=== PATIENT | female | born 1960 | race Two or more races ===

== ENCOUNTER 2024-04-02 10:26 | Outpatient (RCR) | payer BC, SELFPAY | END 2024-04-19 23:59 | disposition home or self-care (01) | LOC: SCTC 10:26 | PROVIDERS: PCP Family Medicine; Referring Provider Family Medicine; Visit Provider Nurse Practitioner Family | DX: C50.811 Malignant neoplasm of overlapping sites of right female breast (principal); Z17.0 Estrogen receptor positive status [ER+]; Z17.21 Progesterone receptor positive status; Z17.32 Human epidermal growth factor receptor 2 negative status; Z90.11 Acquired absence of right breast and nipple; Z79.811 Long term (current) use of aromatase inhibitors | CPT/HCPCS: 99212; G0463 ==

== ENCOUNTER → 2024-07-03 | Outpatient (CLI) | payer BC, SELFPAY ==
--- NOTE | 2024-07-03 13:54 | XR_ITS ---
Examination: PA lateral chest 2 views TECHNIQUE: Upright PA lateral chest 2 views Exam date and time: July 03, 2024 1406 hours Comparison February 28, 2019 INDICATIONS: Shortness of breath beginning one week ago. FINDINGS: Right axillary surgical clips Normal heart size No pneumonia or pulmonary edema Prominent osteopenia IMPRESSION: No pneumonia or pulmonary edema
== END | disposition home or self-care (01) ==
LOC: CDIM 13:36
PROVIDERS: PCP Family Medicine; Referring Provider Nurse Practitioner Family; Visit Provider Nurse Practitioner Family
DX: J45.41 Moderate persistent asthma with (acute) exacerbation (principal)
CPT/HCPCS: 71046

== ENCOUNTER 2024-07-07 15:44 | Emergency (ER) | payer BC, SELFPAY ==
[2024-07-07 16:10] VITALS: BP 147/89; PULSE 89; RESP 18; TEMP 37; O2SAT 100; BMI 31.4
--- NOTE | 2024-07-07 16:15 | XR_ITS ---
Examination: Knee, right , 3 views Technique: Knee AP, lateral, oblique 3 views Date and time of exam: July 07, 2024 1615 hrs. Indications: Patient fell today with into the knee, knee pain. Findings: Mild narrowing medial joint space No fracture or dislocation No opaque foreign body Impression: No fracture No opaque foreign body
[2024-07-07] MEDS: LIDOCAINE HCL 1% 20 ML VIAL INFL (16:21)
[2024-07-07] MEDS: DIPHTH,PERTUSS(ACELL),TET VAC 0.5 ML SYR IMi (16:22)
--- NOTE | 2024-07-07 16:55 | EDNOTE_ITS ---
ED Wound/Laceration-RME/HPI General Chief Complaint: Wound/Laceration Stated Complaint: fall, lac to right leg, wounds to right f/a s/p Time Seen by Provider: 07/07/24 15:54 Arrival date/time: 07/07/24 15:44 64-year-old female presents emergency department today complaint of ground-level fall patient reports injury to right knee as well as right forearm unknown last tetanus Limitations: no limitations Related Data Home Medications ?Medication ?Instructions ?Recorded ?Confirmed montelukast 10 mg tablet 10 mg PO HS #0 tabs 10/04/13 (Singulair) Fluticasone/Salmeterol DISKUS * 1 puff inhalation BID #0 puffs 11/16/14 (ADVAIR DISKUS 100/50 *) Cyclobenzaprine * (FLEXERIL *) 10 mg PO TID PRN MUSCLE CRAMPS #0 02/06/15 tabs ibuprofen 800 mg tablet 800 mg PO Q8HR PRN PAIN #0 t abs 02/06/15 levofloxacin 500 mg tablet 1 tab PO QDAY #0 tabs 02/06 (Levaquin) Previous Rx's ?Medication ?Instructions ?Recorded Sulfamethoxazole/Trimethoprim DS * 1 tab PO BID #20 ta bs 02/06/15 (BACTRIM DS *) hydrocodone 5 mg-acetaminophen 325 1 tab PO Q6H PRN pa in #14 tabs 03/27/19 mg tablet (Ramer) ibuprofen 600 mg tablet 600 mg PO Q6H ginette #20 tabs 1 05/27/18 doxycycline hyclate 100 mg capsule 100 mg PO BID 7 day s #14 caps 07/07/24 ibuprofen 800 mg tablet 800 mg PO TID PRN pain #30 t abs 07/07/24 Allergies Allergy/AdvReac Type Severity Reaction Status Date / Time Penicillins Allergy Unknown Verified 07/07/24 15:48 PCN Allergy Unknown Uncoded 07/07/24 15:48 Review of Systems Review of Systems Systems Reviewed: All systems reviewed, normal except as documented Constitutional Constitutional: Reports system reviewed and no additional complaints, except as documented, Denies fever(s) and Denies headache(s) Eyes Eyes: Reports system reviewed and no additional complaints, except as documented and Denies blurry vision ENT Ears, Nose, Mouth, and Throat: Reports system reviewed and no additional complaints, except as documented, Denies headache(s), Denies nasal congestion and Denies nasal discharge Cardiovascular Cardiovascular: Reports system reviewed and no additional complaints, except as documented, Denies chest pain and Denies dyspnea Respiratory Respiratory: Reports system reviewed and no additional complaints, except as documented, Denies chest congestion, Denies cough and Denies dyspnea Gastrointestinal Gastrointestinal: Reports system reviewed and no additional complaints, except as documented and Denies abdominal pain Integumentary/Breasts Skin/Breast: Reports system reviewed and no additional complaints, except as documented, Denies rash and Reports wounds (Puncture wound right forearm, laceration right knee) Neurologic Neurologic: Reports system reviewed and no additional complaints, except as documented, Reports as per HPI and Denies headache(s) Past Medical History Past Medical History RESPIRATORY: Positive Asthma; Negative Chronic Obstructive Pulmonary Disease (COPD), Emphysema, Pneumonia or Tuberculosis OTHER HISTORY: Positive Blood Transfusions; Negative Cancer Social History SMOKING STATUS: Former smoker ED Exam General Limitations: Present no limitations General appearance: Present alert and in no apparent distress Head Head exam: Present atraumatic, normocephalic and normal inspection Eye Eye exam: Present normal appearance, PERRL and EOMI ENT ENT exam: Present normal exam, normal oropharynx and mucous membranes moist Neck Neck exam: Present normal inspection, full ROM and trachea midline Chest Chest inspection: Present normal inspection and symmetric chest wall rise Respiratory Respiratory exam: Present normal lung sounds bilaterally Cardiovascular Cardiovascular exam: Present regular rate, normal rhythm and normal heart sounds Abdominal Exam Abdominal exam: Present soft and normal bowel sounds Extremities Exam Extremities exam: Present normal inspection and full ROM Back Exam Back exam: Present normal inspection and full ROM Neurological Exam Neurological exam: Present alert, oriented X3, CN II-XII intact, normal gait and reflexes normal; Absent motor sensory deficit Psychiatric Psychiatric exam: Present normal affect and normal mood Skin Skin exam: Present warm, dry and other (Puncture wound right forearm, laceration right knee) Course Quality Measures none Orders Category Date Time Status Set Up Suture Tray STAT Care 07/07/24 16:16 Completed Wound Care NOW Care 07/07/24 16:16 Completed XR knee RT 3V Stat Exams 07/07/24 16:15 Completed Lidocaine 1% 20 ml [Xylocaine 1% 20 ML] Med 07/07/24 16:15 Discontinued 20 ml INFL X1 ONE Tet,Diphth,Pertuss(Acell)-Tdap [Boostrix Vacc] Med 07/07/24 16:15 Discontinued 0.5 ml IMI .ONCE ONE Vital Signs Vital signs: Vital Signs Temperature 98.6 F 07/07/24 16:10 Pulse Rate 89 07/07/24 16:10 Respiratory Rate 18 07/07/24 16:10 Blood Pressure 147/89 H 07/07/24 16:10 Pulse Oximetry (%) 100 07/07/24 16:10 Oxygen Delivery Method Room Air 07/07/24 16:10 O2 saturation on 100% room air within the limits Procedures -ED Laceration Laceration 1: Site: lower extremity Side (If applicable): right Size (cm): 4 Description: linear Depth: simple, single layer Local Anesthetic: lidocaine 1% Amount of anesthesia used (mL): 8 Pre-repair: wound explored and irrigated extensively Skin layer closed with: nylon Size (cm): 3-0 Number of sutures: 6 Technique: simple, interrupted Wound / Laceration MDM Narrative MDM Narrative:: 64-year-old female presents emergency department today complaint of ground-level fall patient reports injury to right knee as well as right forearm unknown last tetanus Patient reports fall was ground-level she reports she tripped patient reports laceration to the right knee as well as puncture wounds to the right forearm Wounds were irrigated copiously laceration repaired with a total of 6 sutures wound is well-approximated no active bleeding at time of discharge to the right knee As far as the right forearm goes there are puncture wounds that will not require sutures Patient discharged with antibiotics and pain medication Patient data External records reviewed:: [facility] previous records Clinical information provided by:: patient Social determinants that could affect healthcare access:: none Patient has the following chronic illnesses:: None How is presenting disease/condition affected by chronic disease/condition?: no chronic disease Evaluation data The following diagnostics were reviewed and interpreted by me:: radiology exam(s) Lab and/or radiology exams considered but not ordered:: Radiology obtained Interpretation Summary: Reviewed by me Medications / Prescriptions Medications or Prescriptions considered but not ordered:: Given Medication administrations:: Medication Administration History Discontinued Medications Diphtheria/Tetanus/Acell Pertussis (Diphth,Pertuss(Acell),Tet Vac 0.5 Ml Syr) 0.5 ml IMi .ONCE ONE Stop: 07/07/24 16:16 Last Admin: 07/07/24 16:22 Dose: 0.5 ml Documented By: PATRICIA Lidocaine HCl (Lidocaine Hcl 1% 20 Ml Vial) 20 ml INFL X1 ONE Stop: 07/07/24 16:16 Last Admin: 07/07/24 16:21 Dose: 20 ml Documented By: PATRICIA Given Consultations Consultation(s) initiated? (list below): No Diagnosis Wound Differential Diagnosis: laceration, abrasion and avulsion of skin Most likely diagnosis given after review of the tests above:: Laceration Admission Indicated Admission indicated?: not indicated Admission Request Was there a request for admission?: No Disposition Plan Disposition Plan: Discharge Discharge Attestation Discharge Attestation: The patient and all family members were given an opportunity to ask questions and understood the discharge instructions. Discharge instructions specifically effects, indications for sooner follow up or return to the emergency department, and the expected course of current diagnosis. Patient condition: Stable Discharge Plan Plan Patient Disposition: HOME (Self Care) Disposition Comment: Stable Prescriptions/Referrals Prescriptions/Med Rec: New doxycycline hyclate 100 mg capsule 100 mg PO BID 7 Days Qty: 14 0RF ibuprofen 800 mg tablet 800 mg PO TID PRN (Reason: pain) Qty: 30 0RF No Action montelukast [Singulair] 10 MG tablet 10 mg PO HS Qty: 0 Fluticasone/Salmeterol DISKUS * (ADVAIR DISKUS 100/50 *) 1 DISK/DEV DISK.W.DEV 1 puff Inhalation BID Qty: 0 ibuprofen 800 MG tablet 800 mg PO Q8HR PRN (Reason: PAIN) Qty: 0 levofloxacin [Levaquin] 500 MG tablet 1 tab PO QDAY Qty: 0 Patient Comments: FOR INFECTION Cyclobenzaprine * (FLEXERIL *) 10 MG tablet 10 mg PO TID PRN (Reason: MUSCLE CRAMPS) Qty: 0 Sulfamethoxazole/Trimethoprim DS * (BACTRIM DS *) 1 TAB tablet 1 tab PO BID Qty: 20 0RF hydrocodone-acetaminophen [Ramer] 5-325 mg tablet 1 tab PO Q6H MDD 1 tab q 6hrs PRN (Reason: pain) Qty: 14 0RF ibuprofen 600 mg tablet 600 mg PO Q6H Qty: 20 0RF Problem List Clinical Impression: Laceration of knee, right, Puncture wound of forearm Patient/Caregiver Discharge Instructions Education Materials: ED Scar Tips to Minimize Additional Instructions: Please follow up with your primary care doctor in the next 24-48hrs for any worsening symptoms return here immediately Print Language: [place] Stand Alone Forms: [employer] Award Info., Patient Portal Info Letter Vaccines Vaccines Given During Stay: TDaP PA/INFORMATION RECEPTIONIST Supervising Physician PA/INFORMATION RECEPTIONIST Supervising Physician: Dr. seay
== END 2024-07-07 17:11 | disposition home or self-care (01) ==
LOC: SERX 17:10
PROVIDERS: Emergency Provider Emergency Medicine; PCP Family Medicine
DX: S81.011A Laceration without foreign body, right knee, initial encounter (principal); S51.831A Puncture wound without foreign body of right forearm, initial encounter; W18.30XA Fall on same level, unspecified, initial encounter; Z23 Encounter for immunization
CPT/HCPCS: 12002; 73562; 90471; 90715; 99283; J3490

== ENCOUNTER → 2024-08-22 | Outpatient (CLI) | payer BC, SELFPAY | END | disposition home or self-care (01) | PROVIDERS: PCP Family Medicine; Referring Provider Registered Nurse; Visit Provider Registered Nurse | DX: N39.0 Urinary tract infection, site not specified (principal) | CPT/HCPCS: 87086 ==

== ENCOUNTER 2024-10-17 08:04 | Outpatient (AMB) | payer BC, SELFPAY ==
[2024-10-17 08:18] VITALS: BP 145/90; PULSE 73; RESP 18; TEMP 36.8; O2SAT 97; BMI 35.0
--- NOTE | 2024-10-17 08:18 | ORTHONT_ITS ---
Vital signs 10/17/24 08:18 Height 1.65 m Height Method Stated Weight 95.481 kg Weight Measurement Method Standing Scale BMI 35.0 BP 145/90 H Blood Pressure Source Automatic Cuff Blood Pressure Location Right Upper Arm Position Sitting Respiration 18 Pulse 73 Pulse Source Monitor Temp 98.3 F Temp Source Temporal Artery Scan Pulse Oximetry (%) 97 Oxygen Delivery Method Room Air Med/Allergies Allergies & Medications Allergies Penicillins Allergy (Unknown, Verified 10/17/24 08:19) PCN Allergy (Unknown, Uncoded 10/17/24 08:19) Medication Reconciliation alendronate 35 mg tablet 35 mg PO QWEEK 10/17/24 [History Confirmed 10/17/24] anastrozole 1 mg tablet 1 mg PO QDAY 10/17/24 [History Confirmed 10/17/24] Exam Exam Breathing is nonlabored. Patient has a normal mood and affect. Bilateral extremities were evaluated and demonstrates sensation intact to light touch. Palpable pedal pulses are present. No significant edema is present. Bilateral hips were examined. The patient has no pain with log roll of the hips. Internal rotation to 30 degrees and external rotation to 30 degrees is painless. Negative FADIR. Left knee was examined today. The left knee is in reasonable alignment. Range of motion from 0-120 degrees. Knee is stable to varus and valgus as well as AP translation with <5mm. Patient has a negative McMurrays. There is no pain with patellofemoral compression and no crepitus noted. The knee is nontender to palpation. The right knee was also examined. The right knee is in varus alignment. Range of motion from 0-115 degrees. Knee is stable to varus and valgus as well as AP translation with <5mm. Patient has a negative McMurrays. There is no pain with patellofemoral compression and no crepitus noted. The knee is tender to palpation medially. Assessment and Plan Problem List (1) Arthritis of right knee: Status: Acute Plan: Patient is a 64-year-old female with right knee pain and right knee arthritis. She had a fall that exacerbated this. We discussed we could do a new x-rays if she wants. She reports the pains has gotten significantly better. We will see her back for routine follow-up Advanced Care Planning Discussion Advance care planning discussed with:: patient Office Procedures GNS Level of Care Nursing/Assessment Patient Status: Established Patient Nursing Assessment/Reassesment: Medication Reconciliation, Update PMH in EMR and Vital Signs Coordination of Care: Complex Care and Chronic Disease 1-5, Education Complex Pt/Fam, Consent,records obtained, informed consent, Results/Orders obtained and Staff clarify orders Established Patient Charge Established Patient Point Assignment: 95 Established Patient Point Charge: EP Level 3 (80-115) MA Intake Visit Data Collection New Patient or Established: Established Patient (seen at [facility] within 3 years) Reason for Visit:: RIGHT KNEE PAIN Seen by Clinical Staff ONLY (RN/MA): No Verbal consent obtained for Telemed visit?: No Public Health Microbiologist Required: No PCP or OBGYN visit in last 3 months: Yes Hx Now: No Do You Feel Safe at Home: Yes Authorities Contacted: N/A Questionairres Past Medical History Past Medical History Have you ever been diagnosed with any of the following: Respiratory Problems Chronic Obstructive Pulmonary Disease (COPD): No Asthma: Yes Emphysema: No Pneumonia: No Tuberculosis: No Smoking: No Smoking Cessation Counseling: No Smoking Exposure: No Tobacco Use: No Other Problems Blood Transfusions: Yes Cancer: No Subjective Visit Visit for: new patient and knee Immunization / Flu Flu Vaccine in the Last 12 Months: Yes Flu Vaccine Exclusion Criteria: Already Received History of Present Illness Chief complaint: RIGHT KNEE PAIN Date of injury / onset of symptoms: FALL IN JUN Patient is a pleasant 64-year-old female with left knee Arthritis with a recent right knee pain after a fall. We have been treating her nonoperatively. She is doing well Personal History Red flag PMH: BMI BMI Counceling provided: Yes Pain Pain level (0-10): 0 Associated signs & symptoms: none Ambulatory data Ambulatory device: none Treatments Improvement with previous injections: No Improvement with PT: No Improvement with NSAIDS: no Review of Systems Review of Systems: All systems negative unless otherwise noted in HPI.
== END 2024-10-17 08:25 | disposition home or self-care (01) ==
LOC: HODSRG 08:04
PROVIDERS: PCP Family Medicine; Referring Provider Family Medicine; Supervising Provider Orthopaedic Surgery Adult Reconstructive Orthopaedic Surgery; Visit Provider Orthopaedic Surgery Adult Reconstructive Orthopaedic Surgery
DX: M17.11 Unilateral primary osteoarthritis, right knee (principal); M25.561 Pain in right knee; S89.91XA Unspecified injury of right lower leg, initial encounter; W19.XXXA Unspecified fall, initial encounter
CPT/HCPCS: 99213; G0463

== ENCOUNTER 2024-11-06 13:13 | Outpatient (RCR) | payer BC, SELFPAY | END 2024-11-17 23:59 | disposition home or self-care (01) | LOC: SCTC 13:13 | PROVIDERS: PCP Family Medicine; Referring Provider Nurse Practitioner Family; Visit Provider Nurse Practitioner Family | DX: C50.811 Malignant neoplasm of overlapping sites of right female breast (principal); Z17.0 Estrogen receptor positive status [ER+]; Z17.21 Progesterone receptor positive status; Z17.32 Human epidermal growth factor receptor 2 negative status; Z90.11 Acquired absence of right breast and nipple; Z79.811 Long term (current) use of aromatase inhibitors; M85.80 Other specified disorders of bone density and structure, unspecified site | CPT/HCPCS: 96365; 99212; J3489; G0463 ==

== ENCOUNTER 2024-11-11 10:19 | Outpatient (AMB) | payer BC, SELFPAY ==
[2024-11-11 10:36] VITALS: BP 113/69; PULSE 73; RESP 17; TEMP 36.7; O2SAT 95; BMI 35.2
--- NOTE | 2024-11-11 10:36 | AMB.GYNCLNOT ---
Vital Signs 11/11/24 10:36 Height 1.65 m Height Method Stated Weight 95.878 kg Weight Measurement Method Standing Scale BMI 35.2 BP 113/69 Blood Pressure Source Automatic Cuff Blood Pressure Location Left Upper Arm Position Sitting Respiration 17 Pulse 73 Pulse Source Monitor Temp 98.1 F Temp Source Temporal Artery Scan Pulse Oximetry (%) 95 Oxygen Delivery Method Room Air Allergies/Home Meds Allergies & Medications Allergies Penicillins Allergy (Unknown, Verified 11/11/24 10:37) PCN Allergy (Unknown, Uncoded 11/11/24 10:37) Medication Reconciliation alendronate 35 mg tablet 35 mg PO QWEEK 10/17/24 [History Confirmed 11/11/24] anastrozole 1 mg tablet 1 mg PO QDAY 10/17/24 [History Confirmed 11/11/24] clindamycin phosphate 1 % topical solution 1 applic topical QDAY 7 days #30 mL 11/11/24 [Rx] clobetasol 0.05 % topical ointment 1 applic topical QDAY 30 days #45 grams 11/11/24 [Rx] estradiol 0.01% (0.1 mg/gram) vaginal cream 1 g vaginal Q3D 30 days #42.5 grams 11/11/24 [Rx] Intake Visit Data Collection New Patient or Established: Established Patient (seen at [facility] within 3 years) Reason for Visit:: REFERRAL VAGINITIS Seen by Clinical Staff ONLY (RN/MA): No 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: No Do You Feel Safe at Home: Yes Authorities Contacted: N/A PCP or OBGYN visit in last 3 months: Yes Date of Last PCP or OBGYN visit: 10/17/24 Are you currently on any form of Control: No Pain Present Currently: No Pain Scale Used: Broderick-Crane/Numerical Pain scale:: 0 Smoking Status Smoking Status: Former smoker 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 1. Little interest or pleasure in doing things: not at all 2. Feeling down, depressed, or hopeless: not at all Total score: 0 PHQ-9 3. Trouble falling or staying asleep, or sleeping too much: Not at all 4. Feeling tired or having little energy: Not at all 5. Poor appetite or overeating: Not at all 6. Feeling bad about yourself - or that you are a failure or have let yourself or your family down: Not at all 7. Trouble concentrating on things, such as reading the newspaper or watching television: Not at all 8. Moving or speaking so slowly that other people could have noticed? - Or the opposite - being so fidgety or restless that you have been moving around a lot more than usual: not at all 9. Thoughts that you would be better off or of hurting yourself in some way: Not at all Total score: 0 If you checked off any problems, how difficult have these problems made it for you to do your work, take care of things at home, or get along with other people?: not difficult at all Source: Developed by Drs. Mike Armstrong, Angie Parmar, Jasson Mcnamara and colleagues, with an educational annette from [employer]. Depression screen completed yes Social History Living Situation History Marital Status: Lives With: Family Housing: House Tobacco History Smoking Status: Former smoker Packs per Day: 0.5 Pack-Years: 4 Alcohol History Alcohol Intake: Never Domestic Abuse History Do You Feel Safe at Home: Yes History of Present Illness HPI Narrative Chief Complaint Vaginitis symptoms, ongoing discomfort and irritation History of Present Illness Tara Perez is a 64-year-old female with a history of right breast cancer and hysterectomy, presenting with vaginitis symptoms. She reports ongoing discomfort and irritation in the vaginal area, which has persisted despite previous treatments. The patient's symptoms began after starting anastrozole on 09/28/2022 for her breast cancer treatment. She was initially treated in March with Bactrim for a suspected UTI, followed by creams, but the symptoms have continued. The vaginitis is likely due to dryness caused by estrogen deprivation from the anastrozole. Tara describes the symptoms as persistent discomfort and irritation in the vaginal area. Tara's medical history is significant for stage 1A, ER positive, PA positive, HER2 negative, moderately differentiated invasive ductal carcinoma of the right breast. She underwent a right breast lumpectomy in December 2019, followed by a sentinel lymph node biopsy and re-excision on 02/24/2022. She also received radiation therapy starting on the same day as her re-excision. Additionally, she has a history of asthma and osteopenia, as confirmed by a DEXA scan on 09/13/2022. The patient's surgical history includes a hysterectomy in 2001, during which she experienced a small intestinal injury. She was previously treated for her current symptoms at [facility] with Bactrim and Diflucan, but the vaginitis persists. Medical History - Osteopenia diagnosed on 09/13/2022 - Right breast cancer, stage 1A, ER positive, PA positive, HER2 negative, moderately differentiated invasive ductal carcinoma - Asthma Surgical History - Right breast re-excision on 02/24/2022 - Right breast lumpectomy with sentinel lymph node biopsy in 12/2019 for stage 1A breast cancer - Hysterectomy in 2001 with small intestinal injury as a complication Medications and Supplements - Anastrozole - Started on 09/28/2022 - Likely causing dryness due to estrogen deprivation - Bactrim - Taken in March for suspected UTI - Diflucan - Taken previously for vaginitis symptoms Review of Systems Genitourinary: Positive for ongoing discomfort and irritation in the vaginal area. Laboratory, Imaging, and Diagnostic Test Results - DEXA scan (09/13/2022): Showed osteopenia - Breast cancer diagnosis: - Stage: 1A - ER: Positive - PA: Positive - HER2: Negative - Type: Moderately differentiated invasive ductal carcinoma Review of Systems Review of Systems Systems Reviewed: All systems reviewed, normal except as documented Exam General General Appearance: alert, in no apparent distress and healthy appearing Head Head exam: atraumatic Neck Neck exam: Present normal inspection and trachea midline Chest Chest inspection: Present normal inspection and symmetric chest wall rise External exam: Present normal external exam; Absent tenderness Neuro Neurological exam: Present oriented X3 Psych Psychiatric exam: Present normal affect and normal mood Office Procedures OB Clinic LOC & Office Proc's Nursing/Assessment Patient Status: Established Patient OB Clinic Nursing Assessment: Medication Reconciliation, Update PMH in EMR and Vital Signs OB Clinic Coordination of Care: Complex Care and Chronic Disease 1-5, Consent,records obtained, informed consent, Education Simp Pt/Fam and Staff clarify orders Established Patient Charge Established Patient Point Assignment: 85 Established Patient Point Charge: EP Level 3 (80-115) Assessment & Plan Diagnosis / Problem List (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 Vaginitis Assessment: Patient presents with ongoing vaginitis symptoms, including discomfort and irritation. Previous treatments with Bactrim and Diflucan at [facility] were ineffective. The symptoms are likely exacerbated by the use of anastrozole, which causes dryness due to estrogen deprivation. The patient's history of breast cancer (stage 1A, ER positive, PA positive, HER2 negative, moderately differentiated invasive ductal carcinoma) and ongoing anastrozole treatment since 09/28/2022 complicate the management of her vaginitis symptoms. Additional Guidance (ACOG Clinical Consensus No. 2, April 2021): - Low-dose vaginal estrogen can be considered if non-hormonal therapies fail - Options include estradiol vaginal tablets (10 mcg), vaginal rings (7.5 mcg/day), or low-dose vaginal creams - Multiple studies (>4,000 women, 2-7 years follow-up) show no increased breast cancer recurrence risk - For patients on aromatase inhibitors, use requires shared decision-making and oncologist consultation Plan: - Prescribe short-term estrogen cream, safe for breast cancer patients, to be used twice a week - Prescribe steroid cream to reduce inflammation, to be used nightly - Recommend wearing cotton underwear to avoid irritation - Follow up in one month - If symptoms persist, consider biopsy - Send prescriptions to [facility] in [place] Osteopenia Assessment: DEXA scan on 09/13/2022 revealed osteopenia. This condition is likely related to the patient's age and possibly exacerbated by the use of anastrozole for breast cancer treatment. Plan: - Continue monitoring bone density - No specific interventions mentioned in this visit Breast Cancer History Assessment: Patient has a history of right breast cancer, diagnosed as stage 1A, ER positive, PA positive, HER2 negative, moderately differentiated invasive ductal carcinoma. Treatment included right breast lumpectomy on 12/2019, sentinel lymph node biopsy, re-excision on 02/24/2022, and radiation therapy. Currently on anastrozole since 09/28/2022 for ongoing management. Plan: - Continue anastrozole as prescribed - Monitor for side effects and complications related to anastrozole use
== END 2024-11-11 10:50 | disposition home or self-care (01) ==
LOC: HODSOBC 10:19
PROVIDERS: PCP Family Medicine; Referring Provider Family Medicine; Supervising Provider Obstetrics & Gynecology; Visit Provider Obstetrics & Gynecology
DX: N90.4 Leukoplakia of vulva (principal); N95.2 Postmenopausal atrophic vaginitis; D05.11 Intraductal carcinoma in situ of right breast; J45.909 Unspecified asthma, uncomplicated; Z17.21 Progesterone receptor positive status; Z17.0 Estrogen receptor positive status [ER+]; Z17.32 Human epidermal growth factor receptor 2 negative status; Z92.3 Personal history of irradiation; Z90.710 Acquired absence of both cervix and uterus; Z79.811 Long term (current) use of aromatase inhibitors; Z87.891 Personal history of nicotine dependence
CPT/HCPCS: 99213; G0463

== ENCOUNTER 2024-12-12 13:13 | Outpatient (AMB) | payer BC, SELFPAY ==
[2024-12-12 13:25] VITALS: BP 125/77; PULSE 68; RESP 17; TEMP 36.8; O2SAT 95; BMI 35.3
--- NOTE | 2024-12-12 13:25 | GYNCLNT_ITS ---
Vital Signs 12/12/24 13:25 Height 1.65 m Height Method Measured Weight 96.275 kg Weight Measurement Method Standing Scale BMI 35.3 BP 125/77 Blood Pressure Source Automatic Cuff Blood Pressure Location Right Upper Arm Position Sitting Respiration 17 Pulse 68 Pulse Source Monitor Temp 98.2 F Temp Source Temporal Artery Scan Pulse Oximetry (%) 95 Oxygen Delivery Method Room Air Allergies/Home Meds Allergies & Medications Allergies Penicillins Allergy (Unknown, Verified 01/15/25 11:20) PCN Allergy (Unknown, Uncoded 01/15/25 11:20) Medication Reconciliation alendronate 35 mg tablet 35 mg PO QWEEK 10/17/24 [History Confirmed 01/15/25] anastrozole 1 mg tablet 1 mg PO QDAY 10/17/24 [History Confirmed 01/15/25] clindamycin phosphate 1 % topical solution 1 applic topical QDAY 7 days #30 mL 11/11/24 [Rx Confirmed 01/15/25] clobetasol 0.05 % topical ointment 1 applic topical QDAY 30 days #45 grams 11/11/24 [Rx Confirmed 01/15/25] estradiol 0.01% (0.1 mg/gram) vaginal cream 1 g vaginal Q3D 30 days #42.5 grams 12/12/24 [Rx Confirmed 01/15/25] Intake Visit Data Collection New Patient or Established: Established Patient (seen at [facility] [place] within 3 years) Reason for Visit:: FOLLOW UP VAGINAL CONCERNS Consent obtained for Telemed Visit: No Seen by Clinical Staff ONLY (RN/MA): No Director Of Volunteer Services Required: No Do You Feel Safe at Home: Yes Authorities Contacted: N/A PCP or OBGYN visit in last 3 months: Yes Date of Last PCP or OBGYN visit: 11/11/24 Hx Now: No Are you currently on any form of Control: No Pain Present Currently: No Pain Scale Used: Broderick-Crane/Numerical Pain scale:: 0 Smoking Status Smoking Status: Former smoker 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 1. Little interest or pleasure in doing things: not at all PHQ-9 8. Moving or speaking so slowly that other people could have noticed? - Or the opposite - being so fidgety or restless that you have been moving around a lot more than usual: not at all Source: Developed by Drs. Mike Armstrong, Angie Parmar, Jasson Mcnamara and colleagues, with an educational annette from [employer]. Social History Living Situation History Lives With: Family Housing: House Tobacco History Smoking Status: Former smoker Packs per Day: 0.5 Pack-Years: 4 Alcohol History Alcohol Intake: Never Domestic Abuse History Do You Feel Safe at Home: Yes History of Present Illness HPI Narrative Patient presents for follow-up regarding her use of estrogen cream for vulvovaginal symptoms. She reports an overall improvement in her symptoms since starting the cream, with only a little bit of irritation remaining. The patient has been using the prescribed estrogen cream twice a week for approximately one month. She notes that while there has been some improvement, she still experiences mild irritation. She seeks clarification on how long to continue using the cream. In addition to the estrogen cream, patient has been prescribed a steroid cream for short-term use. She is instructed to keep this on hand for occasional use when experiencing increased itching or irritation, particularly after activities that may cause sweating or discomfort, such as extended car travel. She has been using estrogen cream applied twice a week for one month so far, providing some benefit with overall symptoms being better, but causing a little bit of irritation. The steroid cream is used for short-term relief and can be used for itching, irritation, or after sweating. Patient reports positive for mild irritation in the genitourinary system. Exam General General Appearance: alert, in no apparent distress and healthy appearing Head Head exam: atraumatic Neck Neck exam: Present normal inspection and trachea midline Chest Chest inspection: Present normal inspection and symmetric chest wall rise External exam: Present normal external exam; Absent tenderness Neuro Neurological exam: Present oriented X3 Psych Psychiatric exam: Present normal affect and normal mood Office Procedures OB Clinic LOC & Office Proc's Nursing/Assessment Patient Status: Established Patient OB Clinic Nursing Assessment: Medication Reconciliation and Update PMH in EMR OB Clinic Coordination of Care: Complex Care and Chronic Disease 1-5, Consent,records obtained, informed consent, Education Simp Pt/Fam and 4+ Authorizations needed Established Patient Charge Established Patient Point Assignment: 85 Established Patient Point Charge: EP Level 3 (80-115) Assessment & Plan Diagnosis / Problem List (1) Ductal carcinoma in situ (DCIS) of right breast: Status: Acute (2) Lichen sclerosus et atrophicus of the vulva: Status: Acute (3) Postmenopausal atrophic vaginitis: Status: Acute Plan Vulvovaginal Atrophy: - Patient reports improvement in overall symptoms with estrogen cream treatment, though some irritation persists. - Improvement is consistent with expected treatment response, as optimal relief typically occurs after 2-3 months of use. - Steroid cream has been used for short-term symptom management. Plan: - Continue estrogen cream twice weekly for 2 more months (completing a 3-month course). - After 3-month course, discontinue estrogen cream for 3 months. - Resume estrogen cream for another 3-month course after the break. - Keep steroid cream available for occasional use as needed for acute symptoms (e.g., itching, irritation, or after prolonged sitting/sweating). - Follow-up appointment in 5 months (after completion of first 3-month course and 3-month break). - For next treatment cycle (after follow-up), reduce estrogen cream application to once weekly. - Ensure patient has sufficient refills for 30-day prescriptions to comply with insurance requirements. Advanced Care Planning Advance care planning discussed with:: patient
== END 2024-12-12 14:08 | disposition home or self-care (01) ==
LOC: HODSOBC 13:13
PROVIDERS: PCP Family Medicine; Referring Provider Family Medicine; Supervising Provider Obstetrics & Gynecology; Visit Provider Obstetrics & Gynecology
DX: N95.2 Postmenopausal atrophic vaginitis (principal); N90.4 Leukoplakia of vulva; L90.0 Lichen sclerosus et atrophicus; D05.11 Intraductal carcinoma in situ of right breast; Z88.0 Allergy status to penicillin; Z87.891 Personal history of nicotine dependence
CPT/HCPCS: 99213; G0463

== ENCOUNTER → 2024-12-24 | Outpatient (CLI) | payer BC, SELFPAY ==
--- NOTE | 2024-12-24 10:28 | XR_ITS ---
Examination: Right knee 4 views TECHNIQUE: AP oblique lateral axial right knee 4 views Date and time: December 24 thousand 25 1053 hours INDICATIONS: Right knee pain beginning one week ago. FINDINGS: Moderate narrowing medial joint space Mild osteoarthritis patellofemoral joint No fracture or patellar dislocation Small knee effusion IMPRESSION: Moderate narrowing medial joint space
== END | disposition home or self-care (01) ==
LOC: CDIM 10:03
PROVIDERS: PCP Family Medicine; Referring Provider Orthopaedic Surgery Adult Reconstructive Orthopaedic Surgery; Visit Provider Orthopaedic Surgery Adult Reconstructive Orthopaedic Surgery
DX: M25.861 Other specified joint disorders, right knee (principal)
CPT/HCPCS: 73564

== ENCOUNTER → 2024-12-29 | Outpatient (CLI) | payer BC, SELFPAY ==
--- NOTE | 2024-12-29 12:30 | XR_ITS ---
Examination: Breast ultrasound complete, bilateral Date and time of exam: December 29, 2024 1220 hours INDICATIONS: Outer right breast tenderness beginning 2021, scar formation right breast with fluid collection in the 9:00 position 8 mm on right breast sonogram August 15, 2023 Technique: Real-time grayscale ultrasonographic imaging bilateral breasts, including all 4 quadrants as well as nipple retroareolar and axillary regions. Findings: Sonographic images right breast No cystic or solid mass Sonographic images left breast 1:00 cyst 6 x 4 mm No solid nodules IMPRESSION: BI-RADS Category 2: Benign findings
--- NOTE | 2024-12-29 13:30 | XR_ITS ---
Examination: Diagnostic digital mammography, bilateral Computer aided detection 3-D breast Tomosynthesis, bilateral Date and time of exam: December 29, 2024 1245 hours Compared to mammograms dating to October 11, 2021 Technique: Nonmagnified MLO, CC views of the breasts to been obtained, reconstructed from 3-D Tomosynthesis images. R2 computer aided detection program utilized for evaluation of suspicious masses and/or abnormal calcifications. 3-D Tomosynthesis images obtained. Findings: Scattered areas of fibroglandular density. Scar formation and surgical clips upper outer right breast consistent with patient's history treated right breast carcinoma Stable small focal asymmetry outer left breast dating to 2021 No interval suspicious masses Impression: BI-RADS Category 2: Benign findings Recommend yearly follow-up mammography.
--- NOTE | 2024-12-29 13:45 | XR_ITS ---
Examination: Bone densitometry Date and time of exam:December 29, 2024 1306 hours INDICATIONS: Hysterectomy age 43 vitamin D and calcium 2 years, right breast carcinoma diagnosis Technique: Lumbar spine and hip total bone mineralization values of an calculated. Peak reference and age match control results have been displayed. Findings: Lumbar spine total bone mineralization is0.948 gm/cm2. This is 0.9 standard deviations below peak reference. This is 1.0 standard deviations above age-matched controls. Hip total bone mineralization is 0.934 gm/cm2 This is 0.2 standard deviations below peak reference. This is 1.0 standard deviations above age-matched controls Impression: There is normal mineralization based on lumbar spine measurements. There is normal mineralization based on hip measurements
== END | disposition home or self-care (01) ==
LOC: CDIM 12:04
PROVIDERS: PCP Family Medicine; Referring Provider Nurse Practitioner Family; Visit Provider Nurse Practitioner Family
DX: R92.323 Mammographic fibroglandular density, bilateral breasts (principal); C50.411 Malignant neoplasm of upper-outer quadrant of right female breast
CPT/HCPCS: 76641; 77062; 77066; 77080; G0279

== ENCOUNTER 2025-01-15 11:00 | Outpatient (AMB) | payer BC, SELFPAY ==
[2025-01-15 11:19] VITALS: BP 126/77; PULSE 80; RESP 18; TEMP 36.6; O2SAT 97; BMI 35.6
--- NOTE | 2025-01-15 11:19 | PD.ORTHCLVIS ---
Vital signs 01/15/25 11:19 Height 1.65 m Height Method Stated Weight 97.182 kg Weight Measurement Method Standing Scale BMI 35.6 BP 126/77 Blood Pressure Source Automatic Cuff Blood Pressure Location Left Upper Arm Position Sitting Respiration 18 Pulse 80 Pulse Source Monitor Temp 97.9 F Temp Source Temporal Artery Scan Pulse Oximetry (%) 97 Oxygen Delivery Method Room Air Med/Allergies Allergies & Medications Allergies Penicillins Allergy (Unknown, Verified 01/15/25 11:20) PCN Allergy (Unknown, Uncoded 01/15/25 11:20) Medication Reconciliation alendronate 35 mg tablet 35 mg PO QWEEK 10/17/24 [History Confirmed 01/15/25] anastrozole 1 mg tablet 1 mg PO QDAY 10/17/24 [History Confirmed 01/15/25] clindamycin phosphate 1 % topical solution 1 applic topical QDAY 7 days #30 mL 11/11/24 [Rx Confirmed 01/15/25] clobetasol 0.05 % topical ointment 1 applic topical QDAY 30 days #45 grams 11/11/24 [Rx Confirmed 01/15/25] estradiol 0.01% (0.1 mg/gram) vaginal cream 1 g vaginal Q3D 30 days #42.5 grams 12/12/24 [Rx Confirmed 01/15/25] Assessment and Plan Problem List (1) Arthritis of right knee: Status: Acute Advanced Care Planning Discussion Advance care planning discussed with:: patient Office Procedures GNS Level of Care Nursing/Assessment Patient Status: Established Patient Nursing Assessment/Reassesment: Medication Reconciliation, Update PMH in EMR and Vital Signs Coordination of Care: Complex Care and Chronic Disease 1-5, Education Complex Pt/Fam, Consent,records obtained, informed consent, Results/Orders obtained and Staff clarify orders Established Patient Charge Established Patient Point Assignment: 95 Established Patient Point Charge: EP Level 3 (80-115) MA Intake Visit Data Collection New Patient or Established: Established Patient (seen at [facility] within 3 years) Reason for Visit:: RIGHT KNEE PAIN/XRAY RESULTS Seen by Clinical Staff ONLY (RN/MA): No Verbal consent obtained for Telemed visit?: No 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: No PCP or OBGYN visit in last 3 months: Yes Hx Now: No Do You Feel Safe at Home: Yes Authorities Contacted: N/A Questionairres Past Medical History Past Medical History Have you ever been diagnosed with any of the following: Respiratory Problems Chronic Obstructive Pulmonary Disease (COPD): No Asthma: Yes Emphysema: No Pneumonia: No Tuberculosis: No Smoking: No Smoking Cessation Counseling: No Smoking Exposure: No Tobacco Use: No Other Problems Blood Transfusions: Yes Cancer: No Subjective Visit Visit for: follow up visit, knee and x-rays (RESULTS) Immunization / Flu Flu Vaccine in the Last 12 Months: Yes Flu Vaccine Exclusion Criteria: Already Received History of Present Illness Chief complaint: RIGHT KNEE PAIN/XRAY RESULTS Date of injury / onset of symptoms: FALL IN JUN Patient is a pleasant 64-year-old female with left knee Arthritis with a recent right knee pain after a fall. We have been treating her nonoperatively. She is doing well. She reports the pain continues to improve He will call us if the pain worsens Personal History Red flag PMH: BMI BMI Counceling provided: Yes Pain Pain level (0-10): 0 Associated signs & symptoms: none Ambulatory data Ambulatory device: none Treatments Improvement with previous injections: No Improvement with PT: No Improvement with NSAIDS: no Review of Systems Review of Systems: All systems negative unless otherwise noted in HPI.
== END 2025-01-15 11:37 | disposition home or self-care (01) ==
LOC: HODSRG 11:00
PROVIDERS: PCP Family Medicine; Referring Provider Family Medicine; Supervising Provider Orthopaedic Surgery Adult Reconstructive Orthopaedic Surgery; Visit Provider Orthopaedic Surgery Adult Reconstructive Orthopaedic Surgery
DX: M17.11 Unilateral primary osteoarthritis, right knee (principal); M25.562 Pain in left knee
CPT/HCPCS: 99213; G0463

== ENCOUNTER 2025-01-26 11:17 | Outpatient (RCR) | payer BC, SELFPAY | END 2025-02-17 23:59 | disposition home or self-care (01) | LOC: SCTC 11:17 | PROVIDERS: PCP Family Medicine; Referring Provider Family Medicine; Visit Provider Nurse Practitioner Family | DX: C50.411 Malignant neoplasm of upper-outer quadrant of right female breast (principal); Z17.0 Estrogen receptor positive status [ER+]; Z17.21 Progesterone receptor positive status; Z17.32 Human epidermal growth factor receptor 2 negative status; Z90.11 Acquired absence of right breast and nipple; Z79.811 Long term (current) use of aromatase inhibitors; M85.80 Other specified disorders of bone density and structure, unspecified site | CPT/HCPCS: 99212; G0463 ==